=== PATIENT | male | born 1995 | race Caucasian/White ===

== ENCOUNTER 2024-01-23 04:40 | Day surgery (SDC) | payer OTHER ==
[2024-01-22 13:20] VITALS: BMI 31.3
[2024-01-23 08:49] LABS: BASO % 0.8 % (0-2.0); HEMATOCRIT 43.4 % (35.4-49); HEMOGLOBIN 14.6 GM/dL (11.7-16.9); LYMPH % 30.5 % (8-40); MCH 28.9 pg (25.7-33.7); MCHC 33.6 g/dl (32.0-35.9); MEAN PLT VOLUME 8.6 fl (7.5-11.1); MONO % 12.9 % (3.8-10.2); NEUT % 50.8 % (42.8-82.8); PLATELET COUNT 260 10^3/uL (134-434); RBC 5.05 M/mm3 (4.00-5.60); RDW 12.8 % (11.9-15.9); WHITE BLOOD COUNT 5.1 K/mm3 (4.0-10.0)
[2024-01-23 08:56] LABS: INR 1.1 (0.83-1.09); PROTHROMBIN TIME (PATIENT) 12.4 SEC (9.7-13.0)
[2024-01-23] MEDS ORDERED: FENTANYL CITRATE/PF 50 MCG/ML VIAL ONE (10:12)
[2024-01-23] MEDS ORDERED: MIDAZOLAM HCL 2 MG/2 ML SINGLE DOSE VIAL ONE (10:12)
[2024-01-23] MEDS: SODIUM CHLORIDE 500 ML IV SCH (10:30)
[2024-01-23] MEDS: MIDAZOLAM HCL 2 MG/2 ML SINGLE DOSE VIAL IVPUSH ONE (10:47)
[2024-01-23] MEDS: FENTANYL CITRATE/PF 50 MCG/ML VIAL IVPUSH ONE (10:47)
[2024-01-23 12:16] VITALS: RESP 20
[2024-01-23 12:52] VITALS: BP 122/64; PULSE 82; TEMP 98.4
== END 2024-01-23 12:52 | disposition home or self-care (01) ==
LOC: JRADIR 04:40
PROVIDERS: ATTEND Surgery
PROC: 0WBF3ZX Excision of Abdominal Wall, Percutaneous Approach, Diagnostic (ICD-10-PCS; principal; 2024-01-23)
DX: R19.00 Intra-abdominal and pelvic swelling, mass and lump, unspecified site (principal)
CPT/HCPCS: 36415; 49180; 76942-TC; 85025; 85610; 88305-TC

== ENCOUNTER 2024-02-08 05:15 | Day surgery (SDC) | payer OTHER ==
[2024-02-07 09:13] VITALS: BMI 31.0
[2024-02-08] MEDS ORDERED: PROPOFOL 20 ML ONE (10:33)
[2024-02-08] MEDS ORDERED: MIDAZOLAM HCL 2 MG/2 ML SINGLE DOSE VIAL ONE (10:34)
[2024-02-08] MEDS ORDERED: oxyCODONE HCL 5 MG TABLET PO PRN (10:43)
[2024-02-08] MEDS ORDERED: ACETAMINOPHEN 325 MG TABLET (FP) PO PRN (10:43)
[2024-02-08] MEDS ORDERED: ONDANSETRON 4 MG/2 ML VIAL IVPUSH PRN (10:43)
[2024-02-08] MEDS ORDERED: LACTATED RINGERS SOLUTION 1,000 ML IV SCH (10:45)
[2024-02-08] MEDS ORDERED: LIDOCAINE 1%/EPI 1:100000 (20 ML MULTI DOSE VIAL) ONE (10:48)
[2024-02-08] MEDS ORDERED: ceFAZolin SODIUM 1 GM VIAL ONE ×2 (11:00)
[2024-02-08] MEDS: ceFAZolin SODIUM 1 GM VIAL IVPB ONE (11:00)
[2024-02-08] MEDS ORDERED: KETOROLAC TROMETHAMINE 30 MG/1 ML VIAL ONE (11:03)
[2024-02-08] MEDS ORDERED: DEXAMETHASONE SOD PHOSPHATE 4 MG/1 ML VIAL ONE (11:03)
[2024-02-08] MEDS: LIDOCAINE 1%/EPI 1:100000 (20 ML MULTI DOSE VIAL) IJ ONE (11:09)
[2024-02-08 15:11] VITALS: RESP 20; TEMP 97.5
[2024-02-08 15:20] VITALS: BP 118/73; PULSE 67
== END 2024-02-08 13:35 | disposition home or self-care (01) ==
LOC: JASU-SURG 05:15
PROVIDERS: ATTEND Surgery
PROC: 0JB80ZZ Excision of Abdomen Subcutaneous Tissue and Fascia, Open Approach (ICD-10-PCS; principal; 2024-02-08 10:30)
DX: D17.79 Benign lipomatous neoplasm of other sites (principal)
CPT/HCPCS: 88304-TC; 94760